=== PATIENT | male | born 1965 | race Caucasian/White ===

== ENCOUNTER 2016-11-22 14:35 | Emergency (ER) | payer OTHER, BC ==
[2016-11-22] MEDS ORDERED: BACITRACIN 500 U/GM OIN TOP ONE ×2 (14:57→16:52)
[2016-11-22 16:37] VITALS: TEMP 98.4
[2016-11-22 16:47] VITALS: BP 104/81; PULSE 77; RESP 14; O2SAT 96
== END 2016-11-22 16:05 | disposition home or self-care (01) | DRG 605 ==
LOC: ED 14:35
DX: S01.01XA Laceration without foreign body of scalp, initial encounter (principal); S09.90XA Unspecified injury of head, initial encounter; V85.5XXA Driver of special construction vehicle injured in nontraffic accident, initial encounter
CPT/HCPCS: 99283